=== PATIENT | male | born 1950 | race Caucasian/White ===

== ENCOUNTER 2025-05-06 21:33 | Inpatient (IN) ==
--- NOTE | 2025-05-07 00:06 | History & Physical Report ---
Date of Service May 07, 2025 Assessment & Plan (1) Chest pain: Plan: 74-year-old male with past med history significant for hypothyroidism, low back pain, depression, anxiety, personality disorder, PTSD, bipolar disorder, lumbar spinal stenosis presents with chest pains. Patient was in [facility] ER on May 01 with chest pains. At that time troponin was 85. CTA chest and abdomen pelvis was unremarkable. Patient was advised for cardiac workup but he signed out AMA. Today again patient went to [facility] ER with chest pains. Initial troponin was 13 and repeat is 24. EKG nonspecific findings. [facility] ER talked with the cardiology on-call and was advised for cardiac workup and transfer to [place]. But patient decided to come to the [facility] and was transferred here. Patient was given aspirin and Tylenol. Patient says currently his chest pain resolved. States he was having chest pain, abdominal pain, headache not feeling well. But states his symptoms improved currently. Denies any cough. Denies runny nose or sore throat. Vision is okay. No earache. Appetite not great. No nausea. Micturating okay. Somewhat constipated. Chest pain Was transferred from [facility] Will follow serial enzymes and echo and EKG Will keep him n.p.o. Telemetry Cardiac consult Hypothyroidism Continue home Synthroid Follow TSH Depression Anxiety PTSD Personality disorder Bipolar disorder Continue home medications Follow lithium levels DVT prophylaxis SCDs for now Disposition Observation telemetry Full code. Admission and Anticipated Discharge Date Admission Date: May 06, 2025 History of Present Illness Chief Complaint: Chest pains Primary Care Provider: Anaid Blank MD 74-year-old male with past med history significant for hypothyroidism, low back pain, depression, anxiety, personality disorder, PTSD, bipolar disorder, lumbar spinal stenosis presents with chest pains. Patient was in [facility] ER on May 01 with chest pains. At that time troponin was 85. CTA chest and abdomen pelvis was unremarkable. Patient was advised for cardiac workup but he signed out AMA. Today again patient went to [facility] ER with chest pains. Initial troponin was 13 and repeat is 24. EKG nonspecific findings. [facility] ER talked with the cardiology on-call and was advised for cardiac workup and transfer to [place]. But patient decided to come to the [facility] and was transferred here. Patient was given aspirin and Tylenol. Patient says currently his chest pain resolved. States he was having chest pain, abdominal pain, headache not feeling well. But states his symptoms improved currently. Denies any cough. Denies runny nose or sore throat. Vision is okay. No earache. Appetite not great. No nausea. Micturating okay. Somewhat constipated. Past medical history. As mentioned above Past surgical history. Colonoscopy. Electroconvulsive therapy. Hemorrhoidectomy. Injection of lumbosacral spine. Tonsillectomy. Social history. Quit smoking 2007. Smoked 1.5 pack a day for 15 years. Says quit alcohol since 2010. Has medical marijuana. Family history. Brother had lymphoma. Brother had liver cancer. Mother had liver disease. Hypertension. Brother had PR. Triple bypass. Allergies Allergy/AdvReac Type Severity Reaction Status Date / Time oxycodone Allergy Intermediate itching Verified 09/12/15 10:24 codeine AdvReac Unknown ITCHING Verified 09/12/15 10:24 Home Medications Medication Instructions Recorded Confirmed Type aspirin 81 mg tablet,delayed 81 mg PO DAILY 05/06/25 05/06/25 History release fluoxetine 40 mg capsule 40 mg PO DAILY 05/06/25 05/06/25 History lamotrigine 200 mg tablet 200 mg PO BID 05/06/25 05/06/25 History levothyroxine 100 mcg tablet 100 mcg PO DAILY 05/06/25 05/06/25 History lithium carbonate 300 mg 300 mg PO BID 05/06/25 05/06/25 History tablet,extended release quetiapine 100 mg tablet 100 mg PO HS 05/06/25 05/06/25 History tadalafil 10 mg tablet 10 mg PO USEASDIRECTD PRN Erectile 05/06/25 05/06/25 History Dysfunction Past Med/Surg History Problem List (Updated 05/07/25 @ 00:15 by Adriel Hubbard MD) Chest pain Septic prepatellar bursitis of right knee Medical History Bipolar 1 disorder Chronic back pain Social History Smoking Status: Former smoker Smoking End Date: 2007; Do You Dip or Chew Tobacco: No; Hx Alcohol Use: No Hx Substance Use: Yes Last Used Substance Other:: medicinal marijuana Preferred Language: Bulgarian Communication Ability: Effective Residential Property Consultant Required: No Beliefs That Will Affect Care: None Current Living Situation: Alone Other Information That Helps Us Care for You: No Feels Safe at Home: Yes Safety Concerns: Feels Safe At This Time Assistive Devices: Denture - Upper, Denture - Lower and Glasses Review of Systems Review of Systems: All systems reviewed & are unremarkable except as noted in HPI & below Physical Exam Physical Exam: General- Not in distress Head- atraumatic Neck- supple, no JVD. Lungs- clear to auscultation no wheezing or crackles Heart- regular rhythm; no murmur, no gallop. Abdomen- normal bowel sounds, soft, nontender, no distension Extremities- no pretibial edema, no erythema seen Neuro- alert, oriented no facial palsy; no dysarthria; moves extremities Results & Data Results & Data Vital Signs (Past 12 Hours) Vital Signs Temp Pulse Resp BP Pulse Ox O2 Del Method 05/06/25 22:46 37.6 C H 84 22 162/105 H 98 Room Air Code Status & VTE Plan VTE Prophylaxis Plan VTE Prophylaxis will be ordered: Yes
[2025-05-07] MEDS ORDERED: NITROGLYCERIN SL 0.4 MG/TAB TAB SL PRN (00:27)
[2025-05-07] MEDS ORDERED: POLYETHYLENE (MIRALAX) 17 GM PACK PO PRN (00:27)
[2025-05-07] MEDS: FAMOTIDINE 20MG IV PUSH 20 MG/5 ML SYR IV STA (00:28)
[2025-05-07 01:42] LABS: Chlamydia pneumoniae PCR Not Detected (NotDetected); Coronavirus 229E PCR Not Detected (NotDetected); Coronavirus CoV-2 (COVID19)PCR Not Detected (NotDetected); Coronavirus HKU1 PCR Not Detected (NotDetected); Coronavirus NL63 PCR Not Detected (NotDetected); Coronavirus OC43PCR Not Detected (NotDetected); Human Metapneumovirus PCR Not Detected (NotDetected); Parainfluenza Virus 1 PCR Not Detected (NotDetected); Parainfluenza Virus 2 PCR Not Detected (NotDetected); Parainfluenza Virus 3 PCR Not Detected (NotDetected); Parainfluenza Virus 4 PCR Not Detected (NotDetected); Respiratory Syncytial VirusPCR Not Detected (NotDetected); Rhinovirus/Enterovirus PCR Not Detected (NotDetected)
[2025-05-07 04:43] LABS: Appearance Urine Clear (Clear); Bacteria Urine Automated None Seen (None Seen); Epithelial Cell Urine Auto 0-2 /hpf (0-2); Glucose Urine UA Negative (Negative); RBC Urine Automated 0-2 /hpf (0-2); WBC Urine Automated 0-5 /hpf (0-5)
[2025-05-07 05:51] LABS: Hematocrit (blood only) 40.2 % (42.0-52.0); Hemoglobin 13.5 g/dL (14.0-18.0); Immature Granulocytes # (auto) 0.03 K/uL (0.01-0.20); Immature Granulocytes % (auto) 0.3 %; Mean Corpuscular Hemoglobin 29.8 pg (25.0-34.0); Mean Corpuscular Volume 88.7 fL (80.0-100.0); Platelet Count 249 K/uL (130-400); RDW Standard Deviation 50.2 fL (36.4-46.3); Red Blood Count 4.53 M/uL (4.70-6.10); White Blood Count 10.38 K/ul (4.8-10.8)
[2025-05-07 06:07] LABS: Alanine Aminotransferase 17.0 U/L (7-52); Albumin Level 3.8 gm/dl (3.4-5.0); Alkaline Phosphatase 81.0 U/L (34-104); Anion Gap 7.0 (3-11); Bilirubin,Total 0.6 mg/dl (0.2-1.0); Blood Urea Nitrogen 15.0 mg/dl (6-23); Calcium 9.2 mg/dl (8.6-10.3); Carbon Dioxide 22.0 mmol/L (21-32); Chloride 111.0 mmol/L (98-107); Creatinine Clr Calc Pharmacy 64.0 ml/min; Glucose 93.0 mg/dl (70-99(Fasting)); Magnesium 2.1 mg/dl (1.7-2.4); Potassium 3.7 mmol/L (3.5-5.1); Sodium 140.0 mmol/L (136-145); Total Protein 6.7 gm/dl (6.0-8.3)
[2025-05-07 06:22] LABS: Thyroid Stimulating Hormone 1.432 uIu/ml (0.300-4.500)
[2025-05-07] MEDS: LEVOTHYROXINE SODIUM 100 MCG TABLET PO SCH (06:23)
[2025-05-07 06:26] LABS: INR 1.0 (0.9-1.1); Partial Thromboplastin Time 29 Seconds (21-31); Prothrombin Time 11.0 Seconds (9.0-12.0)
[2025-05-07 07:52] VITALS: RESP 18
[2025-05-07] MEDS: ACETAMINOPHEN 325 MG TAB PO PRN (07:55)
[2025-05-07] MEDS: lamoTRIgine 100 MG TAB PO SCH (07:56)
[2025-05-07] MEDS: LITHIUM CARBONATE SLOW REL 300 MG TAB PO SCH (07:56)
[2025-05-07] MEDS: ASPIRIN 81 MG ECTAB PO SCH (07:56)
--- NOTE | 2025-05-07 08:10 | XRay Report ---
EXAM: XR chest 1V portable CLINICAL HISTORY: fever, chest pain TECHNIQUE: An X-ray image of the chest is obtained in AP portable projection. COMPARISON: No prior studies are available for comparison. FINDINGS: Pulmonary Parenchyma: Few small areas of haziness in right lower zone, inflammatory process cannot be ruled out. Left lung clear. Blunting of right CP angle likely pleural thickening vs effusion. No evidence of left pleural effusion or pleural thickening. Heart and Mediastinum: Heart size and shape are normal. No mediastinal widening or masses. No hilar or mediastinal lymphadenopathy. Bony Thorax: Bony thorax appears intact without fractures or deformities. Soft Tissues: Soft tissues overlying the chest wall are unremarkable. IMPRESSION: 1. Few small areas of haziness in right lower zone, inflammatory process cannot be ruled out. 2. Blunting of right CP angle likely pleural thickening vs effusion. 3. Clinical and lab parameters correlation is advised. Electronically signed by Massimo Garcia 05-07-2025 08:09 AM
--- NOTE | 2025-05-07 09:10 | XCELERA ---
[id number] \\ISCV[facility]\ISCV_PDF_[id number]
[2025-05-07] MEDS: INFLUENZA VACC TS2025-26(65y+)/PF (IIV3) 0.5mL Syr IM ONE (09:26)
--- NOTE | 2025-05-07 10:17 | Cardiology Consultation ---
Date of Consultation May 07, 2025 Assessment & Plan (1) Chest pain: (2) Elevated troponin: (3) HTN (hypertension): (4) Dyslipidemia: (5) Family history of ischemic heart disease: Plan 74-year-old male admitted with atypical chest discomfort starting in abdomen and radiating into chest. Patient initially evaluated at [facility]. EKG with minimal nonspecific change. High-sensitivity mildly elevated and downtrending (32.9 pg/mL then 29.3 pg/mL). Resting echocardiography with preserved LV systolic function without regional wall motion abnormalities. Patient does have multiple risk factors including hypertension, dyslipidemia, history of tobacco abuse, family history. Options of management discussed. Pharmacological stress testing ordered. Further recommendations pending. Supervising Physician Co-Signing Physician Notes Attending attestation: Case reviewed with the advanced practitioner. I have personally performed a history and physical examination on the patient. I have reviewed the advanced practitioner's documentation on the date of service referenced in note, and I agree with, and take responsibility for the plan of care. Subjective: Patient seen prior to, during and after dobutamine stress echocardiogram. Symptoms resolved. Blood pressure stable during test. Data: Dobutamine Stress echocardiogram negative for inducible ischemia Impression/ Plan: Chest discomfort, workup for ischemic heart disease reassuring. Consider medication therapy for gastroesophageal reflux disease such as proton pump inhibitor Mild aortic root, proximal ascending aorta enlargement With diameters of 4.1 cm and 3.8 cm respectively on echocardiogram. No previous studies on file. -Recommend repeat imaging with echo or CTA chest in 6 to 12 months. - Patient stable for discharge from a cardiac perspective. I spent a total of 30 minutes coordinating, documenting, and providing care for this patient excluding time spent in the performance of separately billed services or time spent by another provider. Panda Alcala DO History of Present Illness Reason for Consultation: Chest pain Requesting Physician: [facility], Dr. Adriel Hubbard Attending Physician: [facility], Dr. Haris Quintero MD History of Present Illness 74-year-old male patient who initially presented to [facility] with abdomi nal and chest discomfort felt to represent acid reflux. High-sensitivity troponin was elevated. Further cardiac workup advised however patient left against medical advise. Patient returned to [facility] ER with chest discomfort earlier today. EKG with nonspecific findings per documentation. Patient subsequently transferred to [facility] for further evaluation. Chest pain resolved in the ER, without recurrence thus far. EKG at 7:48 this morning revealed normal sinus rhythm at 63 bpm with mild nonspecific changes, QTc 444 ms. A second EKG time 7:54 revealed normal sinus rhythm at 72 bpm with u nchanged minor nonspecific changes. High-sensitivity troponin minimally elevated at 32.9 pg/mL then 29.3 pg/mL. Resting echocardiography this morning revealed preserved LV systolic function without regional wall motion abnormalities, EF 55 to 60%. Moderate mitral regurgitation observed along with grade 1 diastolic dysfunction, mild enlargement of the aortic root (4.1 cm) and ascending aorta (3.8 cm). Telemetry monitoring thus far reveals sinus rhythm throughout with occasional PVC. Chest x-ray with a few areas of haziness in the right lower zone, blunting of the right costophrenic angle. Information from patient is somewhat difficult to discern. He is hard of hearing. Symptoms attributed to acid reflux. Patient states that he could have a cardiac issue. He notes walking all of his life. Ambulation at present is slow and steady, utilizing a walking stick due to chronic back pain. No palpitations. No new or worsening shortness of breath. No lower extremity peripheral edema. No dizziness or syncope. No fevers or chills. No melena or hematochezia. Past Medical and Surgical History: Bipolar disorder, history of electroconvulsive therapy Posttraumatic stress disorder History of alcohol abuse, abstaining since 2010 hypertension Dyslipidemia Hypothyroidism Chronic back pain status post multiple injections Lumbar spine stenosis Hemorrhoidectomy Tonsillectomy as a child Family History: Mother at 77, unknown cause, history of hypertension, liver disease, drug abuse. Father was killed in a coal mine at the age of 53. Three siblings, 2 , 1 alive. One from drug abuse. Oldest brother had CAD status post CABG x 3, liver cancer. Youngest brother had cancer, passing within [place]. Another brother lives in [place], without recent contact. Social History: Reformed smoker having quit in 2007 after smoking 1 pack/day since the age of 17. Quit smokeless tobacco in the . Alcoholic: Quit in 2010. Lives alone. No family. 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 Allergies Allergy/AdvReac Type Severity Reaction Status Date / Time oxycodone Allergy Intermediate itching Verified 09/12/15 10:24 codeine AdvReac Unknown ITCHING Verified 09/12/15 10:24 Home Medications Medication Instructions Recorded Confirmed Type aspirin 81 mg tablet,delayed 81 mg PO DAILY 05/06/25 05/06/25 History release fluoxetine 40 mg capsule 40 mg PO DAILY 05/06/25 05/06/25 History lamotrigine 200 mg tablet 200 mg PO BID 05/06/25 05/06/25 History levothyroxine 100 mcg tablet 100 mcg PO DAILY 05/06/25 05/06/25 History lithium carbonate 300 mg 300 mg PO BID 05/06/25 05/06/25 History tablet,extended release quetiapine 100 mg tablet 100 mg PO HS 05/06/25 05/06/25 History tadalafil 10 mg tablet 10 mg PO USEASDIRECTD PRN Erectile 05/06/25 05/06/25 History Dysfunction Patient History Medical History Bipolar 1 disorder Chronic back pain Social History Smoking Status: Former smoker Smoking End Date: 2007; Do You Dip or Chew Tobacco: No; Hx Alcohol Use: No Hx Substance Use: Yes Last Used Substance Other:: medicinal marijuana Preferred Language: Guatemalan Communication Ability: Effective Turkey Roll Maker Required: No Beliefs That Will Affect Care: None Current Living Situation: Alone Other Information That Helps Us Care for You: No Feels Safe at Home: Yes Safety Concerns: Feels Safe At This Time Assistive Devices: Denture - Upper, Denture - Lower and Glasses Review of Systems Review of Systems: Complete review of systems is otherwise as stated above, negative, or noncontributory. Physical Exam Physical Exam: General: Alert to person and place. NAD. Skin: Multiple tattoos. HENT: Normocephalic. Atraumatic. Mouth: Dry. Eyes: PER. Conjunctiva pink, sclera clear. Neck: Carotid bruits. No JVD. Heart: RRR, 66 bpm. Grade I-II/ apical systolic murmur. No rub. Lungs: Diminished. Decreased Clear to auscultation. Abdomen: +BS. Soft. Nontender. No masses or organomegaly. Extremities: No clubbing, cyanosis, or edema. Limited neurological examination is without focal deficits. Pulses: Posterior tibial=2/4. Results & Data Vital Signs (Past 12 Hours) Vital Signs Temp Pulse Pulse Resp BP Pulse Ox O2 Del Method 05/07/25 07:28 36.7 C 66 18 153/86 H 96 Room Air 05/07/25 07:20 68 05/07/25 04:22 36.6 C 65 20 129/80 97 Room Air 05/06/25 23:30 93 H 05/06/25 22:46 37.6 C H 84 22 162/105 H 98 Room Air Laboratory Results Cardiac Enzymes 05/07/25 05/07/25 Range/Units 00:23 05:30 AST 25 (13-39) U/L Troponin I High Sens 32.9 H 29.3 H (0-20) pg/ml Coagulation 05/07/25 Range/Units 05:30 PT 11.0 (9.0-12.0) Seconds APTT 29 (21-31) Seconds CBC 05/07/25 Range/Units 05:30 WBC 10.38 (4.8-10.8) K/ul RBC 4.53 L (4.70-6.10) M/uL Hgb 13.5 L (14.0-18.0) g/dL Hct 40.2 L (42.0-52.0) % Plt Count 249 (130-400) K/uL Neut # (Auto) 6.74 H (1.40-6.50) K/uL Lymph # (Auto) 2.62 (1.20-3.40) K/uL Granite # (Auto) 0.74 H (0.11-0.59) K/uL Eos # (Auto) 0.19 (0.00-0.50) K/uL Baso # (Auto) 0.06 (0.00-0.20) K/uL Comprehensive Metabolic Panel 05/07/25 Range/Units 05:30 Sodium 140 (136-145) mmol/L Potassium 3.7 (3.5-5.1) mmol/L Chloride 111 H (98-107) mmol/L Carbon Dioxide 22 (21-32) mmol/L BUN 15 (6-23) mg/dl Creatinine 0.95 (0.6-1.4) mg/dl Glucose 93 (70-99(Fasting)) mg/dl Calcium 9.2 (8.6-10.3) mg/dl Direct Bilirubin 0.1 (0-0.2) mg/dl AST 25 (13-39) U/L ALT 17 (7-52) U/L Alkaline Phosphatase 81 (34-104) U/L Total Protein 6.7 (6.0-8.3) gm/dl Albumin 3.8 (3.4-5.0) gm/dl Intake and Output 05/06/25 05/07/25 05/07/25 22:59 06:59 14:59 Intake Total 250 / 250 Balance 250 / 250 Intake: Oral 250 / 250 Other: # Unmeasured Voids 3 Weight 70.3 kg Weight Measurement Method Built in [facility] PG Care Time/CCT Total # of Minutes Spent Total Time Spent with Patient: Total time spent is greater than 50% in coordination of care (as documented) at patient's floor/unit and/or counseling patient. I spent a total of 66 minutes on the date of service in preparation, delivery, and documentation of the care provided to this patient excluding any time spent in the performance of separately billed services. This visit was a split-shared visit with the substantive portion of the medical decision making performed by the supervising literacy education professor/billing provider. Coding Level of Care Code 65950 IN/OBS CONSULT LVL 4,60M Diagnoses Chest pain R07.9 Elevated troponin R79.89 HTN (hypertension) I10 Dyslipidemia E78.5 Family history of ischemic heart disease Z82.49
[2025-05-07 11:34] VITALS: BP 127/94; PULSE 74; TEMP 98.2; O2SAT 97
--- NOTE | 2025-05-07 12:54 | Electrocardiogram Report ---
Test Reason : Blood Pressure : */* mmHG Vent. Rate : 63 BPM Atrial Rate : 63 BPM P-R Int : 178 ms QRS Dur : 90 ms QT Int : 434 ms P-R-T Axes : 69 25 80 degrees QTcB Int : 444 ms Normal sinus rhythm Normal ECG No previous ECGs available Confirmed by Constantino Al ([id number]) on 05/07/2025 12:54:10 PM Referred By: Adriel Hubbard Confirmed By: Constantino Al
[2025-05-07] MEDS: DOBUTamine HCL 12.5 MG/ML 20 ML VIAL IV ONE (13:19)
[2025-05-07] MEDS: ATROPINE SULFATE 0.1 MG/ML 10ML SYR IV ONE (13:19)
[2025-05-07] MEDS: METOPROLOL TARTRATE 1 MG/ML VIAL IV ONE (13:19)
--- NOTE | 2025-05-07 13:19 | XCELERA ---
[id number] \\ISCV[facility]\ISCV_PDF_[id number]
--- NOTE | 2025-05-07 13:40 | Discharge Summary ---
Date of Service May 07, 2025 Admission HPI Per Admitting Provider 74-year-old male with past med history significant for hypothyroidism, low back pain, depression, anxiety, personality disorder, PTSD, bipolar disorder, lumbar spinal stenosis presents with chest pains. Patient was in [facility] ER on May 01 with chest pains. At that time troponin was 85. CTA chest and abdomen pelvis was unremarkable. Patient was advised for cardiac workup but he signed out AMA. Today again patient went to [facility] ER with chest pains. Initial troponin was 13 and repeat is 24. EKG nonspecific findings. [facility] ER talked with the cardiology on-call and was advised for cardiac workup and transfer to [place]. But patient decided to come to the [facility] and was transferred here. Patient was given aspirin and Tylenol. Patient says currently his chest pain resolved. States he was having chest pain, abdominal pain, headache not feeling well. But states his symptoms improved currently. Denies any cough. Denies runny nose or sore throat. Vision is okay. No earache. Appetite not great. No nausea. Micturating okay. Somewhat constipated. Past medical history. As mentioned above Past surgical history. Colonoscopy. Electroconvulsive therapy. Hemorrhoidectomy. Injection of lumbosacral spine. Tonsillectomy. Social history. Quit smoking 2007. Smoked 1.5 pack a day for 15 years. Says quit alcohol since 2010. Has medical marijuana. Family history. Brother had lymphoma. Brother had liver cancer. Mother had liver disease. Hypertension. Brother had [place]. Triple bypass. Admission Exam Per Admitting Provider General- Not in distress Head- atraumatic Neck- supple, no JVD. Lungs- clear to auscultation no wheezing or crackles Heart- regular rhythm; no murmur, no gallop. Abdomen- normal bowel sounds, soft, nontender, no distension Extremities- no pretibial edema, no erythema seen Neuro- alert, oriented no facial palsy; no dysarthria; moves extremitie Principal Diagnosis Chest pain, ACS ruled out Discharge Exam Constitutional: WD/WN, vitals as above, NAD, sitting up in bed, pleasant, conversing easily Respiratory: normal respiratory effort, lungs clear to auscultation, no wheeze, rales, rhonchi. Normal insp/exp effort, no accessory muscle use Cardiovascular: RRR, no murmur, no edema Vessels: no JVD or carotid bruit Chest: normal inspection of chest Abdomen: normal bowel sounds, soft, nontender, no hepatosplenomegaly Musculoskeletal: no cyanosis or clubbing, extremities motor strength 5/5 Skin: no rashes, warm and dry normal turgor Neurologic: PERRL, EOMI, accommodation nl, no face palsy, no dysarthria CN's II- XI intact bilaterally and moves all extremities Psychiatric: A+Ox3, euthymic affect Discharge Data Allergies Allergy/AdvReac Type Severity Reaction Status Date / Time oxycodone Allergy Intermediate itching Verified 09/12/15 10:24 codeine AdvReac Unknown ITCHING Verified 09/12/15 10:24 Consultations 05/07/25 08:00 Consult Cardiology Routine Hospital Course (1) Chest pain: 74-year-old male with past med history significant for hypothyroidism, low back pain, depression, anxiety, personality disorder, PTSD, bipolar disorder, lumbar spinal stenosis presents with chest pain. EKG showed normal sinus rhythm with no ST or T wave changes High-sensitivity troponin was elevated to 32.9 on admission with downtrending subsequent lab. Echocardiogram showed normal EF of 55 to 60%; grade 1 diastolic dysfunction, moderate MR, mild aortic root dilation with diameter of 4.1 cm, proximal ascending aorta of 3.8 cm. Patient was admitted to medical floor; cardiology was consulted for comanagement and patient underwent dobutamine stress echo which showed normal pharmacological stress and echocardiogram. Patient was discharged home with 2 weeks trial of Protonix to see if chest pain is related with reflux. Patient to follow-up with PCP. He will need echocardiogram or CTA chest to be done in 6 to 12 months time to follow-up on enlarged aortic root, proximal ascending aorta. Please note the above document was generated using voice recognition software. It may contain grammatical, syntax or spelling errors. Any formal questions or concerns about the content, text or information contained within the body of this dictation should be directly addressed to the provider for clarification Total Time Total Time Spent Total Time Spent (In Minutes): 45 Total Time Includes: Examination of the Patient, Discharge Planning, Medication Reconciliation, Communication With Other Providers and Other Discharge Plan Discharge Items Patient Disposition: Home - Self-Care Reason For Visit: CHEST PAIN, RULE OUT ACS Discharge Diagnosis: Chest pain, ACS ruled out Activity: Resume your previous activity Non-emergency contact: Primary Care Provider Call non-emergency contact if: you have any medication questions and your symptoms worsen Follow-up/Referrals: Anaid Blank MD [Primary Care Provider] - Diet: Regular Addtl Attending Provider Instructions: You were admitted to the hospital due to chest pain. You were evaluated by cardiology during the hospitalization. You underwent a stress echocardiogram which showed normal heart function. You are found to have slightly enlarged aortic root, approximately ascending aorta; you will need echocardiogram or CT of the chest in 6 to 12 months to ensure it is not increasing in size. You have been prescribed Protonix 40 mg once a day for 2 weeks for the trial of possible reflux. If you do well on this medication; please ask for refill with your primary care doctor. An appointment will be set up with a primary care doctor Pending Studies at Discharge: No Stand-Alone Forms: My [facility] FanKave, Smoking Cessation Medications and DC Order Prescriptions: New pantoprazole 40 mg Tablet,Delayed Release (Dr/Ec) 40 mg PO QAM Qty: 14 0RF Continued fluoxetine 40 mg capsule 40 mg PO DAILY lamotrigine 200 mg tablet 200 mg PO BID lithium carbonate 300 mg tablet extended release 300 mg PO BID quetiapine 100 mg tablet 100 mg PO HS levothyroxine 100 mcg tablet 100 mcg PO DAILY tadalafil 10 mg tablet 10 mg PO USEASDIRECTD PRN (Reason: Erectile Dysfunction) aspirin [Aspir-81] 81 mg Tablet,Delayed Release (Dr/Ec) 81 mg PO DAILY Discharge Orders: Discharge Order (Routine); Ordered 05/07/25 Ordered By: Haris Quintero Admission Data Admit Date/Time: 05/06/25 23:54 Attending Provider: Haris Quintero Admit Provider: Adriel Hubbard Primary Care Provider: Anaid Blank Other Providers: Jen Sexton; Panda Alcala; Tolu Eldridge; Yvon Almanza; Franky Vega; Markie Levy; Bernie Mackay; Katelyn Jiang; Delia Reed; Sherron Harrison; Jen Ward; Walter Szymanski; Saurabh Diaz; Carmen Urbina; Cecile Bhatia; Anayeli Coburn; Sridevi Pool; Jared Vital; Gaye Eldridge; Tasia Kang; Constantino Aldana; Yair Stubbs
== END 2025-05-07 15:51 | disposition home or self-care (01) | DRG 313 ==
LOC: 2S 22:37 → SUATTDRO 22:37
DX: Z79.899 Other long term (current) drug therapy; E78.5 Hyperlipidemia, unspecified; F31.9 Bipolar disorder, unspecified; Z86.718 Personal history of other venous thrombosis and embolism; F43.10 Post-traumatic stress disorder, unspecified; F32.A Depression, unspecified; Z79.85 Long-term (current) use of injectable non-insulin antidiabetic drugs; Z79.890 Hormone replacement therapy; I10 Essential (primary) hypertension; E03.9 Hypothyroidism, unspecified; Z88.5 Allergy status to narcotic agent; R07.9 Chest pain, unspecified; R79.89 Other specified abnormal findings of blood chemistry; Z87.891 Personal history of nicotine dependence; F41.9 Anxiety disorder, unspecified; Z82.49 Family history of ischemic heart disease and other diseases of the circulatory system; Z79.82 Long term (current) use of aspirin